=== PATIENT | male | born 1980 | race Caucasian/White ===

== ENCOUNTER 2018-04-15 18:47 | Inpatient (IN) ==
[2018-04-15] MEDS ORDERED: Famotidine PF Inj 20 MG/2 ML Vial IV.PUSH ONE (20:20)
[2018-04-15] MEDS ORDERED: Ketorolac Inj 30 MG/ML (IVP) Vial IV.PUSH ONE (20:20)
[2018-04-15] MEDS ORDERED: Lisinopril 20 MG Tablet PO ONE (20:20)
--- NOTE | 2018-04-15 20:20 | ED ---
HPI General Chief Complaint: Chest Pain Stated Complaint: chest pain/arm pain Time Seen by Provider: 04/15/18 19:55 History of Present Illness HPI narrative: Patient is a 37-year-old man on a vacation he has been driving from [place] to [place] to [place] back and forth and he developed 3 days ago epigastric pain that felt like "as if you drank a soda really fast and all the bubbles were hurting your chest. He reports burping helps alleviate the symptoms he also took Zantac which is not sure if it helped patient also reports left and right arm pain but more left than right. He put icy hot on his neck to help alleviate and that did help somewhat because he was reading on the Internet that the nerves could be pinched the neck causing left arm pain I corroborate that he was correct and that most of the likely it is pinched nerves in his neck. Patient has no family history of cardiac disease patient has hypertension he is out of his lisinopril for over a month. Problem was that they did not see him in the office he did not renew his lisinopril 20 mg daily p.o. patient is hypertensive 200/103 in the ER is pain-free at the time of my exam. His risk factors are hypertension and morbid obesity he took Tylenol with mild alleviation took Zantac took Aleve but still his symptoms persist Complete Quality Measures for STEMI Alert Patients Related Data Previous Rx's Medication Instructions Recorded amlodipine [Norvasc] 5 mg PO DAILY 30 Days #30 tab 04/17/18 aspirin 81 mg PO DAILY #30 tab 04/17/18 atorvastatin [Lipitor] 80 mg PO HS 30 Days #240 tab 04/17/18 clopidogrel [Plavix] 75 mg PO DAILY 30 Days #30 tab 04/17/18 hydralazine 50 mg PO TID 30 Days #90 tab 04/17/18 hydrochlorothiazide 12.5 mg PO DAILY 30 Days #30 cap 04/17/18 lisinopril 20 mg PO DAILY 30 Days #30 tab 04/17/18 metoprolol tartrate 25 mg PO BID 30 Days #60 tab 04/17/18 Allergies Allergy/AdvReac Type Severity Reaction Status Date / Time bee venom protein (honey bee) Allergy Swelling Verified 04/15/18 20:00 [Bee sting] No Known Drug Allergies Allergy n/a Verified 04/15/18 20:00 Review of Systems ROS: all other systems reviewed are negative [facility] Medical History Medical History Hypertension (Acute) Family History Family History Father Colon cancer Social History Social History Substance History: No History of Abuse Second Hand Smoke Exposure: Yes Smoking Status: Current every day smoker Tobacco Type: Cigarettes How Often Do You Have a Drink Containing Alcohol: 2 to 4 times a month Recent Travel in [facility] within the Last 8 Weeks: No Recent Out of Country Travel within the Last 8 Weeks: No Substance Abuse Detail Marijuana: Substance Use Status: Active Route Used Substance Abuse: Inhalation Substance Frequency: "once in a great while" Reason for Use: Calm Down, Feels Good and Get High Immunization History Tetanus Immunization: Unsure Hx Influenza Vaccine This Season: No Exam Narrative Exam Narrative: GENERAL: pt is in no distress at this time of initial exam SKIN: Warm and dry. HEAD: Atraumatic. Normocephalic. EYES: Pupils equal and round. No scleral icterus. No injection or drainage. ENT: No nasal bleeding or discharge. Mucous membranes pink and moist. NECK: Trachea midline. No JVD. massaging left neck trapezius does not reproduce the left arm pain CARDIOVASCULAR: Regular rate and rhythm. RESPIRATORY: No accessory muscle use. Clear to auscultation. Breath sounds equal bilaterally. GASTROINTESTINAL: Abdomen Obese , non tender . Hepatic and splenic margins not palpable. MUSCULOSKELETAL: Extremities without clubbing, cyanosis, or edema. No obvious deformities. NEUROLOGICAL: Awake and alert. No obvious cranial nerve deficits. Motor grossly within normal limits. Five out of 5 muscle strength in the arms and legs. Normal speech. PSYCHIATRIC: Appropriate mood and affect; insight and judgment normal. Course Hospital Course: I tell the patient that he has had an ischemic cardiac event and his troponin is 3.9 he is considering leaving I tell him the danger of repolarization arrhythmia including V. fib arrest leading to cardiac he then decides he will stay. 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 [place] I tell him that there is a high's possible risk in the first 24 hours of repolarization cardiac arrhythmia that could lead to he stays heparinized and give him aspirin and he is admitted to stepdown ICU Initial Documented Vital Signs Temperature 98.5 F 04/15/18 18:55 Pulse Rate 91 H 04/15/18 18:55 Respiratory Rate 20 04/15/18 18:55 Blood Pressure 206/124 H 04/15/18 18:55 Pulse Oximetry 97 04/15/18 18:55 Last Documented Vital Signs Temperature 97.9 F 04/17/18 11:00 Pulse Rate 71 04/17/18 11:00 Respiratory Rate 20 04/17/18 11:00 Blood Pressure 146/83 H 04/17/18 11:00 Pulse Oximetry 96 04/17/18 11:00 Critical Care Time Critical Care Time: Yes Total Critical Care Time: 30 Attestation: Patient cardiac care evaluation of EKGs troponin and evaluation heparinizing... 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 I reassure him he is a risk for going to severe repolarization cardiac arrhythmia which could be fatal leading to V. fib arrest patient then decided he will stay and he is admitted to [facility] heparin drip process patient is pain-free at this time and stable admitted to Dr. Morris Medical Screen Exam Complete: Yes Emergency Medical Condition: Yes Differential Diagnosis Differential Diagnosis: Cardiac ischemia causing chest pain versus GERD versus gastritis versus viral gastroenteritis versus costochondritis versus neuropraxia due to muscle spasms of the trapezius muscles around his paracervical area Lab Data Result diagrams: 04/17/18 10:36 04/17/18 10:36 Lab Results 04/15/18 04/15/18 04/15/18 Range/Units 20:35 20:35 20:35 WBC 11.8 H (4.0-11.0) th/mm3 RBC 5.83 (4.50-5.90) mil/mm3 Hgb 16.2 (13.0-17.0) gm/dL Hct 47.3 (39.0-51.0) % MCV 81.1 (80.0-100.0) fL MCH 27.7 (27.0-34.0) pg MCHC 34.2 (32.0-36.0) % RDW 15.1 (11.6-17.2) % Plt Count 296 (150-450) th/mm3 MPV 9.1 (7.0-11.0) fL Neut % (Auto) 68.6 (16.0-70.0) % Lymph % (Auto) 22.5 (9.0-44.0) % [place] % (Auto) 7.4 (0.0-8.0) % Eos % (Auto) 1.3 (0.0-4.0) % Baso % (Auto) 0.2 (0.0-2.0) % Neut # (Auto) 8.1 H (1.8-7.7) th/mm3 Lymph # (Auto) 2.7 (1.0-4.8) th/mm3 [place] # (Auto) 0.9 (0.0-0.9) th/mm3 Eos # (Auto) 0.2 (0.0-0.4) th/mm3 Baso # (Auto) 0.0 (0.0-0.2) th/mm3 WBC Differential . Differential Comment Auto diff final PT 10.0 (9.8-11.6) sec INR 1.0 Ratio APTT 21.8 L (24.3-30.1) sec Sodium (136-145) meq/L Potassium (3.5-5.1) meq/L Chloride (98-107) meq/L Carbon Dioxide (21.0-32.0) meq/L Anion Gap (5-15) meq/L BUN (7-18) mg/dL Creatinine (0.60-1.30) mg/dL Estimated GFR (>89) mL/min Random Glucose (74-106) mg/dL Calcium (8.5-10.1) mg/dL Total Bilirubin (0.2-1.0) mg/dL AST (15-37) U/L ALT (12-78) U/L Alkaline Phosphatase (45-117) U/L Total Creatine Kinase (39-308) U/L CK-MB (CK-2) (0.5-3.6) ng/mL CK-MB (CK-2) % (0.0-4.0) % Troponin I 3.94 H* (0.02-0.05) ng/mL Total Protein (6.4-8.2) g/dL Albumin (3.4-5.0) g/dL Urine Opiates Screen (Neg) Ur Barbiturates Screen (Neg) Ur Amphetamines Screen (Neg) U Benzodiazepines Scrn (Neg) Urine Cocaine Screen (Neg) U Cannabinoids Screen (Neg) 04/15/18 04/16/18 04/16/18 Range/Units 20:35 02:35 04:40 WBC (4.0-11.0) th/mm3 RBC (4.50-5.90) mil/mm3 Hgb (13.0-17.0) gm/dL Hct (39.0-51.0) % MCV (80.0-100.0) fL MCH (27.0-34.0) pg MCHC (32.0-36.0) % RDW (11.6-17.2) % Plt Count (150-450) th/mm3 MPV (7.0-11.0) fL Neut % (Auto) (16.0-70.0) % Lymph % (Auto) (9.0-44.0) % [place] % (Auto) (0.0-8.0) % Eos % (Auto) (0.0-4.0) % Baso % (Auto) (0.0-2.0) % Neut # (Auto) (1.8-7.7) th/mm3 Lymph # (Auto) (1.0-4.8) th/mm3 [place] # (Auto) (0.0-0.9) th/mm3 Eos # (Auto) (0.0-0.4) th/mm3 Baso # (Auto) (0.0-0.2) th/mm3 WBC Differential Differential Comment PT (9.8-11.6) sec INR Ratio APTT 27.5 D (24.3-30.1) sec Sodium 136 140 (136-145) meq/L Potassium 4.8 3.9 D (3.5-5.1) meq/L Chloride 105 106 (98-107) meq/L Carbon Dioxide 25.0 27.7 (21.0-32.0) meq/L Anion Gap 6 6 (5-15) meq/L BUN 11 11 (7-18) mg/dL Creatinine 0.84 0.89 (0.60-1.30) mg/dL Estimated GFR Greater than 89 Greater than 89 (>89) mL/min Random Glucose 95 110 H (74-106) mg/dL Calcium 8.7 8.4 L (8.5-10.1) mg/dL Total Bilirubin 0.3 0.3 (0.2-1.0) mg/dL AST 93 H 62 H (15-37) U/L ALT 49 41 (12-78) U/L Alkaline Phosphatase 74 62 (45-117) U/L Total Creatine Kinase 551 H (39-308) U/L CK-MB (CK-2) 43.3 H (0.5-3.6) ng/mL CK-MB (CK-2) % 7.9 H* (0.0-4.0) % Troponin I 6.79 H* (0.02-0.05) ng/mL Total Protein 7.9 6.9 D (6.4-8.2) g/dL Albumin 3.3 L 3.2 L (3.4-5.0) g/dL Urine Opiates Screen (Neg) Ur Barbiturates Screen (Neg) Ur Amphetamines Screen (Neg) U Benzodiazepines Scrn (Neg) Urine Cocaine Screen (Neg) U Cannabinoids Screen (Neg) 04/16/18 04/16/18 04/16/18 Range/Units 04:40 08:05 08:27 WBC 10.3 (4.0-11.0) th/mm3 RBC 5.56 (4.50-5.90) mil/mm3 Hgb 15.1 (13.0-17.0) gm/dL Hct 46.1 (39.0-51.0) % MCV 82.9 (80.0-100.0) fL MCH 27.2 (27.0-34.0) pg MCHC 32.8 (32.0-36.0) % RDW 15.1 (11.6-17.2) % Plt Count 295 (150-450) th/mm3 MPV 8.4 (7.0-11.0) fL Neut % (Auto) 65.4 (16.0-70.0) % Lymph % (Auto) 24.5 (9.0-44.0) % [place] % (Auto) 7.7 (0.0-8.0) % Eos % (Auto) 1.7 (0.0-4.0) % Baso % (Auto) 0.7 (0.0-2.0) % Neut # (Auto) 6.8 (1.8-7.7) th/mm3 Lymph # (Auto) 2.5 (1.0-4.8) th/mm3 [place] # (Auto) 0.8 (0.0-0.9) th/mm3 Eos # (Auto) 0.2 (0.0-0.4) th/mm3 Baso # (Auto) 0.1 (0.0-0.2) th/mm3 WBC Differential . Differential Comment Auto diff final PT (9.8-11.6) sec INR Ratio APTT (24.3-30.1) sec Sodium (136-145) meq/L Potassium (3.5-5.1) meq/L Chloride (98-107) meq/L Carbon Dioxide (21.0-32.0) meq/L Anion Gap (5-15) meq/L BUN (7-18) mg/dL Creatinine (0.60-1.30) mg/dL Estimated GFR (>89) mL/min Random Glucose (74-106) mg/dL Calcium (8.5-10.1) mg/dL Total Bilirubin (0.2-1.0) mg/dL AST (15-37) U/L ALT (12-78) U/L Alkaline Phosphatase (45-117) U/L Total Creatine Kinase 515 H (39-308) U/L CK-MB (CK-2) 37.6 H (0.5-3.6) ng/mL CK-MB (CK-2) % 7.3 H* (0.0-4.0) % Troponin I 7.19 H* (0.02-0.05) ng/mL Total Protein (6.4-8.2) g/dL Albumin (3.4-5.0) g/dL Urine Opiates Screen Pos H (Neg) Ur Barbiturates Screen Neg (Neg) Ur Amphetamines Screen Pos H (Neg) U Benzodiazepines Scrn Pos H (Neg) Urine Cocaine Screen Neg (Neg) U Cannabinoids Screen Neg (Neg) 04/17/18 04/17/18 Range/Units 10:36 10:36 WBC 9.4 (4.0-11.0) th/mm3 RBC 5.39 (4.50-5.90) mil/mm3 Hgb 14.6 (13.0-17.0) gm/dL Hct 44.4 (39.0-51.0) % MCV 82.5 (80.0-100.0) fL MCH 27.1 (27.0-34.0) pg MCHC 32.9 (32.0-36.0) % RDW 15.0 (11.6-17.2) % Plt Count 277 (150-450) th/mm3 MPV 8.1 (7.0-11.0) fL Neut % (Auto) 68.2 (16.0-70.0) % Lymph % (Auto) 20.6 (9.0-44.0) % [place] % (Auto) 9.4 H (0.0-8.0) % Eos % (Auto) 1.1 (0.0-4.0) % Baso % (Auto) 0.7 (0.0-2.0) % Neut # (Auto) 6.4 (1.8-7.7) th/mm3 Lymph # (Auto) 1.9 (1.0-4.8) th/mm3 [place] # (Auto) 0.9 (0.0-0.9) th/mm3 Eos # (Auto) 0.1 (0.0-0.4) th/mm3 Baso # (Auto) 0.1 (0.0-0.2) th/mm3 WBC Differential . Differential Comment Auto diff final PT (9.8-11.6) sec INR Ratio APTT (24.3-30.1) sec Sodium 139 (136-145) meq/L Potassium 4.1 (3.5-5.1) meq/L Chloride 105 (98-107) meq/L Carbon Dioxide 27.2 (21.0-32.0) meq/L Anion Gap 7 (5-15) meq/L BUN 11 (7-18) mg/dL Creatinine 0.84 (0.60-1.30) mg/dL Estimated GFR Greater than 89 (>89) mL/min Random Glucose 106 (74-106) mg/dL Calcium 8.6 (8.5-10.1) mg/dL Total Bilirubin (0.2-1.0) mg/dL AST (15-37) U/L ALT (12-78) U/L Alkaline Phosphatase (45-117) U/L Total Creatine Kinase (39-308) U/L CK-MB (CK-2) (0.5-3.6) ng/mL CK-MB (CK-2) % (0.0-4.0) % Troponin I (0.02-0.05) ng/mL Total Protein (6.4-8.2) g/dL Albumin (3.4-5.0) g/dL Urine Opiates Screen (Neg) Ur Barbiturates Screen (Neg) Ur Amphetamines Screen (Neg) U Benzodiazepines Scrn (Neg) Urine Cocaine Screen (Neg) U Cannabinoids Screen (Neg) Discharge Plan Discharge Disposition Patient Disposition: 30 Still Patient Discharge Condition Condition: Good Discharge Order Discharge Orders: Discharge Order (Routine); Ordered 04/17/18 Ordered By: Presley Connor Discharge Details Anticipated Discharge Date: 04/17/18 Discharge Comment: Discharge when cleared by cardiology. Physicians Team ED Provider: Benny Garner Primary Care Provider: UNKNOWN, Attending Provider: Presley Connor Other Providers: Rupesh Aldrich Vincent G Status ED Status: Left Department Discharge Information Discharge Date/Time: 04/16/18 12:50
--- NOTE | 2018-04-15 20:52 | ECG ---
Date Performed: 04/15/2018 Time Performed: 19:59:40 PTAGE: 37 years EKG: Sinus rhythm INCOMPLETE RIGHT BUNDLE BRANCH BLOCK BORDERLINE ECG NO PREVIOUS TRACING DOCTOR: Rupesh Aldrich Interpretating Date/Time 04/15/2018 20:52:28
[2018-04-15 21:22] LABS: Activated Partial Thrombo Time 21.8 sec (24.3-30.1)
[2018-04-15 21:36] LABS: Baso % (Auto) 0.2 % (0.0-2.0); Eos # (Auto) 0.2 th/mm3 (0.0-0.4); Eos % (Auto) 1.3 % (0.0-4.0); Hematocrit 47.3 % (39.0-51.0); Hemoglobin 16.2 gm/dL (13.0-17.0); Lymph # (Auto) 2.7 th/mm3 (1.0-4.8); Lymph % (Auto) 22.5 % (9.0-44.0); Mean Corpuscular HGB Conc 34.2 % (32.0-36.0); Mean Corpuscular Hemoglobin 27.7 pg (27.0-34.0); Mean Corpuscular Volume 81.1 fL (80.0-100.0); Mean Platelet Volume 9.1 fL (7.0-11.0); Mono # (Auto) 0.9 th/mm3 (0.0-0.9); Mono % (Auto) 7.4 % (0.0-8.0); Neut # (Auto) 8.1 th/mm3 (1.8-7.7); Neut % (Auto) 68.6 % (16.0-70.0); Platelet Count 296 th/mm3 (150-450); Red Blood Count 5.83 mil/mm3 (4.50-5.90); Red Cell Distribution Width 15.1 % (11.6-17.2); White Blood Count 11.8 th/mm3 (4.0-11.0)
[2018-04-15] MEDS ORDERED: diazePAM 5 MG Tablet PO ONE (21:48)
[2018-04-15 21:52] LABS: Alanine Aminotransferase 49 U/L (12-78)
[2018-04-15 21:54] LABS: Alkaline Phosphatase 74 U/L (45-117); Total Protein 7.9 g/dL (6.4-8.2)
[2018-04-15 22:21] LABS: Albumin 3.3 g/dL (3.4-5.0); Anion Gap 6 meq/L (5-15); Aspartate Aminotransferase 93 U/L (15-37); Blood Urea Nitrogen 11 mg/dL (7-18); Calcium 8.7 mg/dL (8.5-10.1); Chloride 105 meq/L (98-107); Glomerular Filtration Rate Greater Than 89 mL/min (>89); Glucose,Random 95 mg/dL (74-106); Sodium 136 meq/L (136-145)
[2018-04-15 22:22] LABS: Potassium 4.8 meq/L (3.5-5.1)
[2018-04-15] MEDS ORDERED: Heparin 10,000 UNITS/10 ML Vial (for IV use) IV.PUSH ONE (22:30)
[2018-04-15] MEDS ORDERED: Heparin Drip 25,000 UNIT/250 ML BAG IV.CONT PRN (22:31)
[2018-04-15] MEDS ORDERED: Morphine Inj 4 MG/ML Vial IV.PUSH ONE (22:33)
[2018-04-15] MEDS ORDERED: Morphine Inj 4 MG/ML Vial IV.PUSH PRN (22:53)
--- NOTE | 2018-04-15 23:07 | P.HPIM ---
History of Present Illness Primary Care Physician: UNKNOWN History of Present Illness: Mr. Jacobs is a 37-year-old male. He has a past history of hypertension. He came into the hospital with chest pressure. This is been occurring on and off for the past 2 days it became more significant today. Other symptoms included bilateral arm cramping. He says similar symptoms previously happened approximately 2 years ago. He visited hospital for those symptoms but that workup was negative at that time. Workup tonight showing a high troponin level at 3.94. Patient continues to have chest pressure on and off. Risk factors for coronary artery disease or smoking, alcohol abuse, obesity, and a sedentary lifestyle. He says he has used cocaine in the past but denies any recent cocaine use. He did recently use Adderall. Hypertension is present at baseline and he takes lisinopril 20 mg daily for this. No other complaints. - Diagnosis (1) Angina at rest (2) NSTEMI (non-ST elevated myocardial infarction) (3) Hypertension Review of Systems Constitutional: Denies chills, Denies fever(s), Denies malaise, Denies night sweats, Denies weakness Eyes: Denies blind spots, Denies blurry vision, Denies change in vision, Denies double vision Ears, Nose, Mouth, and Throat: Denies abnormal hearing, Denies bleeding gums, Denies change in voice Cardiovascular: Reports chest pain, Reports chest pain at rest, Reports chest pain with activity Respiratory: Denies cough, Denies shortness of breath, Denies wheezing Gastrointestinal: Denies abdominal pain, Denies black, tarry stools, Denies bloating, Denies bright, red blood in stools Musculoskeletal: Denies abnormal walking, Denies back pain, Denies body aches Skin/Breast: Denies rash, Denies skin pain, Denies skin ulcer Neurologic: Denies abnormal hearing, Denies abnormal movements, Denies abnormal speech PMFSH - History History Provided By: Patient - Medical History Medical History: Medical History (Last Updated 04/15/18 @ 20:01 by Eli Bennett) Hypertension - Family History Family History: Family History (Last Updated 04/16/18 @ 00:14 by Derek Morris MD) Father Colon cancer - Tobacco History Second Hand Smoke Exposure: No Tobacco Use In Past 30 Days: Yes Smoking Status: Current every day smoker Tobacco Type: Cigarettes - Alcohol History How Often Do You Have a Drink Containing Alcohol: 2 to 3 times a week - Substance Use History Substance History: Active Abuse - Substance Use Type Marijuana Status: Active Route Used: Inhalation Frequency: "once in a great while" Reason for Use: Calm Down, Feels Good, Get High - Travel History Recent Travel in the [place] Within the Last 8 Weeks: No Recent Travel Out of the Country Within the Last 8 Weeks: No - Immunization History Tetanus Immunization: Unsure Hx Influenza Vaccine This Season: No Medications and Allergies Active Medications: Active Medications Al Hydroxide/Mg Hydroxide (Milk Of [place] Amin) 30 ml PO Q12H PRN PRN Reason: Mild Constipation Clonidine HCl (Catapres) 0.1 mg PO Q6H PRN PRN Reason: SYS BP GREATER THAN 160 MMHG Enalaprilat (Vasotec Inj) 1.25 mg IV.PUSH Q6H PRN PRN Reason: SBP>160, DBP>90 Heparin Sodium/Dextrose (Heparin/D5w 25,000 U/250 Ml) 25,000 unit in 250 mls @ 0 mls/hr IV.CONT TITRATE PRN; Protocol PRN Reason: Per Protocol Sodium Chloride (Ns Inj) 1,000 mls @ 84 mls/hr IV.CONT .[id number] [place] Lisinopril (Prinivil) 20 mg PO DAILY [place] Morphine Sulfate (Morphine Inj) 4 mg IV.PUSH Q4H PRN PRN Reason: Pain 7 to 10 Morphine Sulfate (Morphine Inj) 2 mg IV.PUSH Q4H PRN PRN Reason: Pain 3 to 6 Ondansetron HCl (Zofran Inj) 4 mg IV.PUSH Q6H PRN PRN Reason: NAUSEA OR VOMITING Sodium Chloride (Ns Flush) 2 ml IV.FLUSH UNSCH PRN PRN Reason: FLUSH AFTER USING IV ACCESS Last Admin: 04/15/18 21:14 Dose: 2 ml Allergies Allergy/AdvReac Type Severity Reaction Status Date / Time bee venom protein (honey bee) Allergy Swelling Verified 04/15/18 20:00 [Bee sting] No Known Drug Allergies Allergy n/a Verified 04/15/18 20:00 Home Medications Medication Instructions Recorded Confirmed Type lisinopril 20 mg PO DAILY 04/15/18 04/15/18 History Exam Vital signs: Vital Signs 04/15/18 18:55 04/15/18 20:01 04/15/18 20:06 Temperature 98.5 F Pulse Rate 91 H 82 77 Respiratory Rate 20 18 Blood Pressure 206/124 H 201/114 H Pulse Oximetry 97 98 04/15/18 20:20 04/15/18 20:30 04/15/18 20:44 Temperature Pulse Rate 82 75 Respiratory Rate 20 Blood Pressure 200/103 H Pulse Oximetry 98 98 98 Intake & Output 04/15/18 04/15/18 04/16/18 06:59 18:59 06:59 Weight 167.829 kg Results - Labs CBC & Chem 7: 04/15/18 20:35 04/15/18 20:35 Labs: Short CBC 04/15/18 Range/Units 20:35 WBC 11.8 H (4.0-11.0) th/mm3 Hgb 16.2 (13.0-17.0) gm/dL Hct 47.3 (39.0-51.0) % Plt Count 296 (150-450) th/mm3 BMP 04/15/18 20:35 Sodium 136 Potassium 4.8 Chloride 105 Carbon Dioxide 25.0 BUN 11 Creatinine 0.84 Calcium 8.7 Cardiac Enzymes 04/15/18 Range/Units 20:35 Troponin I 3.94 H* (0.02-0.05) ng/mL Liver Function 04/15/18 Range/Units 20:35 Total Bilirubin 0.3 (0.2-1.0) mg/dL AST 93 H (15-37) U/L ALT 49 (12-78) U/L Alkaline Phosphatase 74 (45-117) U/L Albumin 3.3 L (3.4-5.0) g/dL Caprini VTE Risk Assessment Caprini VTE Risk Assessment: Moderate/High Risk (score >= 2) Caprini Risk Assessment Model: Point Value = 1 Point Value = 2 Point Value = 3 Point Value = 5 Age 41-60 Minor surgery BMI > 25 kg/m2 Swollen legs Varicose veins or History of unexplained or recurrent spontaneous Oral contraceptives or hormone replacement Sepsis (< 1 month) Serious lung disease, including pneumonia (< 1 month) Abnormal pulmonary function Acute myocardial infarction Congestive heart failure (< 1 month) History of inflammatory bowel disease Medical patient at bed rest Age 61-74 Arthroscopic surgery Major open surgery (> 45 min) Laparoscopic surgery (> 45 min) Malignancy Confined to bed (> 72 hours) Immobilizing plaster cast Central venous access Age >= 75 History of VTE Family history of VTE Factor V Leiden Prothrombin [id number] Lupus anticoagulant Anticardiolipin antibodies Elevated serum homocysteine Heparin-induced thrombocytopenia Other congenital or acquired thrombophilia Stroke (< 1 month) Elective arthroplasty Hip, pelvis, or leg fracture Acute spinal cord injury (< 1 month) Prophylaxis Regimen: Total Risk Factor Score Risk Level Prophylaxis Regimen 0-1 Low Early ambulation 2 Moderate Order ONE of the following: *Sequential Compression Device (SCD) *Heparin 5000 units SQ BID 3-4 Higher Order ONE of the following medications: *Heparin 5000 units SQ TID *Enoxaparin/Lovenox 40 mg SQ daily (WT < 150 kg, CrCl > 30 mL/min) *Enoxaparin/Lovenox 30 mg SQ daily (WT < 150 kg, CrCl > 10-29 mL/min) *Enoxaparin/Lovenox 30 mg SQ BID (WT < 150 kg, CrCl > 30 mL/min) AND/OR *Sequential Compression Device (SCD) 5 or more Highest Order ONE of the following medications: *Heparin 5000 units SQ TID (Preferred with Epidurals) *Enoxaparin/Lovenox 40 mg SQ daily (WT < 150 kg, CrCl > 30 mL/min) *Enoxaparin/Lovenox 30 mg SQ daily (WT < 150 kg, CrCl > 10-29 mL/min) *Enoxaparin/Lovenox 30 mg SQ BID (WT < 150 kg, CrCl > 30 mL/min) AND *Sequential Compression Device (SCD) Assessment and Plan - Assessment (1) Angina at rest Code(s): I20.8 - Other forms of angina pectoris Status: Acute (2) NSTEMI (non-ST elevated myocardial infarction) Code(s): I21.4 - Non-ST elevation (NSTEMI) myocardial infarction Status: Acute (3) Hypertension Code(s): I10 - Essential (primary) hypertension Status: Acute - Plan 37-year-old male admitted secondary to angina with NSTEMI. Angina NSTEMI Follow cardiac enzymes Aspirin daily When necessary oxygen When necessary morphine for pain. When necessary nitroglycerin Follow on telemetry Cardiology consulted Heparin IV drip Hypertensive urgency Hypertension Continue baseline treatment Follow blood pressures Adjust treatments as needed As needed clonidine Nicotine dependence Patient counseled to quit Intermittent alcohol abuse Monitor for any evidence of withdrawal DVT prophylaxis Patient is on a heparin drip
[2018-04-16] MEDS: Sod Chloride 0.9% Inj 1,000 ML IV.CONT SCH ×2 (01:00→18:25)
[2018-04-16] MEDS: Morphine Inj 4 MG/ML Vial IV.PUSH PRN ×3 (01:01→10:04)
[2018-04-16 03:26] LABS: Alanine Aminotransferase 41 U/L (12-78); Albumin 3.2 g/dL (3.4-5.0); Alkaline Phosphatase 62 U/L (45-117); Anion Gap 6 meq/L (5-15); Aspartate Aminotransferase 62 U/L (15-37); Blood Urea Nitrogen 11 mg/dL (7-18); Calcium 8.4 mg/dL (8.5-10.1); Carbon Dioxide 27.7 meq/L (21.0-32.0); Chloride 106 meq/L (98-107); Creatine Kinase 551 U/L (39-308); Glomerular Filtration Rate Greater Than 89 mL/min (>89); Glucose,Random 110 mg/dL (74-106); Potassium 3.9 meq/L (3.5-5.1); Sodium 140 meq/L (136-145); Total Protein 6.9 g/dL (6.4-8.2)
[2018-04-16 03:30] LABS: Troponin I 6.79 ng/mL (0.02-0.05)
[2018-04-16 03:44] LABS: Creatine Kinase MB 43.3 ng/mL (0.5-3.6)
[2018-04-16 03:52] LABS: CKMB Percent 7.9 % (0.0-4.0)
[2018-04-16 05:29] LABS: Baso # (Auto) 0.1 th/mm3 (0.0-0.2); Baso % (Auto) 0.7 % (0.0-2.0); Eos # (Auto) 0.2 th/mm3 (0.0-0.4); Eos % (Auto) 1.7 % (0.0-4.0); Hematocrit 46.1 % (39.0-51.0); Hemoglobin 15.1 gm/dL (13.0-17.0); Lymph # (Auto) 2.5 th/mm3 (1.0-4.8); Lymph % (Auto) 24.5 % (9.0-44.0); Mean Corpuscular HGB Conc 32.8 % (32.0-36.0); Mean Corpuscular Hemoglobin 27.2 pg (27.0-34.0); Mean Corpuscular Volume 82.9 fL (80.0-100.0); Mean Platelet Volume 8.4 fL (7.0-11.0); Mono # (Auto) 0.8 th/mm3 (0.0-0.9); Mono % (Auto) 7.7 % (0.0-8.0); Neut # (Auto) 6.8 th/mm3 (1.8-7.7); Neut % (Auto) 65.4 % (16.0-70.0); Platelet Count 295 th/mm3 (150-450); Red Blood Count 5.56 mil/mm3 (4.50-5.90); Red Cell Distribution Width 15.1 % (11.6-17.2); White Blood Count 10.3 th/mm3 (4.0-11.0)
[2018-04-16] MEDS: Lisinopril 20 MG Tablet PO SCH (08:08)
--- NOTE | 2018-04-16 08:42 | ECG ---
Date Performed: 04/16/2018 Time Performed: 00:58:57 PTAGE: 37 years EKG: Sinus rhythm CONSIDER INFERIOR INFARCT, AGE UNDETERMINED BORDERLINE ECG NO PREVIOUS TRACING DOCTOR: Rupesh Aldrich Interpretating Date/Time 04/16/2018 08:41:13
[2018-04-16 09:24] LABS: Amphetamine Screen,Urine Pos (Neg); Barbiturate Screen,Urine Neg (Neg); Cannabinoid Screen,Urine Neg (Neg); Cocaine Screen,Urine Neg (Neg)
[2018-04-16 09:25] LABS: Creatine Kinase MB 37.6 ng/mL (0.5-3.6)
[2018-04-16 09:34] LABS: Opiate Screen,Urine Pos (Neg)
--- NOTE | 2018-04-16 11:46 | ECG ---
Date Performed: 04/16/2018 Time Performed: 07:53:34 PTAGE: 37 years EKG: Sinus rhythm NORMAL ECG PREVIOUS TRACING : 04/16/2018 00.58 No significant change from previous tracing noted. DOCTOR: Rupesh Aldrich Interpretating Date/Time 04/16/2018 11:42:46
[2018-04-16 12:01] LABS: CKMB Percent 7.3 % (0.0-4.0); Troponin I 7.19 ng/mL (0.02-0.05)
[2018-04-16] MEDS ORDERED: Heparin 10,000 UNITS/10 ML Vial (for IV use) ONE (12:03)
[2018-04-16] MEDS ORDERED: Heparin/NS PF Inj 1,000 ML ONE (12:03)
[2018-04-16] MEDS ORDERED: fentaNYL Citrate Inj 100 MCG/2 ML Ampul ONE (12:48)
[2018-04-16] MEDS ORDERED: hydrALAZINE HCl Inj 20 MG/ML Vial ONE (14:28)
[2018-04-16] MEDS ORDERED: Misc Info for Pharmacy OTHER STA (14:40)
[2018-04-16] MEDS ORDERED: Morphine Inj 4 MG/ML Vial IV.PUSH PRN (14:40)
[2018-04-16] MEDS ORDERED: Acetaminophen 325 MG Tablet PO PRN (14:40)
[2018-04-16] MEDS ORDERED: oxyCODONE/Acetaminophen 10/325 Tablet PO PRN (14:40)
--- NOTE | 2018-04-16 14:43 | CATHPROC ---
[facility] HIS Report Study Information Study Number Admission Scheduled Start Study Start [id number] Apr 15 2018 10:55PM 04/16/2018 Apr 16 2018 12:33PM [facility] Service Cardiac Catheterization Admit Source Facility Department Emergency department [facility] Worker Physician and Clinical Staff Initial Isauro Velasquez Parakeet Raiser Nimo Dennis RN Parakeet RaiserSanjuana Dominguez RN Other cathlab, cathlab Recorder Frida Sánchez,HEALTHCARE INTERPRETER TECH2 Scrub Annamaria Mccartney RCIS TECH2 Procedures Performed Procedure Location (Site) Vessel Name Coronary Angiograms LCA Left Coronary Coronary Angiograms RCA Right Coronary L Heart Cath PTCA CIRC Mid CIRC Stent CIRC Mid CIRC Wire insertion Radial (right) Radial Art. Equipment Time Canary Raiser Description Size Mfg Part Number Used/Scraped WIRE, BALANCE MIDDLEWEIGHT [id number] 13:12 [employer] 190CM Used 190CM *[id number] TRANSDUCER, TRUWAVE [id number] 12:37 ROSE BEATTY * Used W/STOCKCOCK *[id number] 534-518T *[id number] 534-521T *[id number] 12:37 [employer] BLANKET,WARM AIR CCL * Used *[id number] 12:37 [employer] PACK, CCL CUSTOM * Used *[id number] 12:37 [employer] SUPPORT, ARTERIAL ADULT 19988 *[id number] Used [id number] 13:33 MEDTRONIC BALLOON, 2.0 X 12MM EUPHORA 12MM Used *[id number] 13:42 MEDTRONIC BALLOON, 2.5 X 20MM EUPHORA 20MM Used *[id number] BALLOON, 2.75 X 15MM NC [id number] 13:52 MEDTRONIC 15MM Used EUPHORA *[id number] BALLOON, 3.0 X 15MM NC [id number] 14:07 MEDTRONIC 15MM Used EUPHORA *[id number] BALLOON, 3.25 X 8MM NC [id number] 13:53 MEDTRONIC 8MM Used EUPHORA *[id number] [id number] 13:48 MEDTR[employer]IC STENT, 2.5 26 INTEGRITY 2.5 26 Used *[id number] 13:12 MEDTRONIC/AVE EBU 3.5 Z2 GUIDE CATHETER FR 6 Used *[id number] 13:26 [employer]TR[employer]IC/AVE EBU 4.0 Z2 GUIDE CATHETER FR 6 Used *[id number] 13:38 Tocagen 30 EMETERIO INDEFLATOR Used *[id number] BAND, RADIAL COMPRESSION TR [id number] 14:09 INFERNO FITNESS [employer] 29CM Used LARGE 29 *[id number] 12:37 [employer] WIRE, EXCHANGE 260CM 3MMJ 260CM Used *[id number] 12:37 NAMIC MANIFOLD, 4 PORT * Used *[id number] 12:37 NYCOMED OMNIPAQUE, 350 MG, 150ML 150ML [id number] Used 13:56 NYCOMED OMNIPAQUE, 350 MG, 150ML 150ML [id number] Used SHEATH, FR6 TRANSRADIAL [id number] 12:37 [employer] FR 6 Used SLENDER 10CM *[id number] Equipment Model, Serial, Lot Number and Expiration Data Description Model Number Serial Number Lot Number Expiration Date STENT, 2.5 26 INTEGRITY [id number] 06-03-2019 History: Risk Factors Family History of Hypertension Dyslipidemia Previous AL Previous Heart Failure Premature CAD Yes No Yes No No Prior Valve Prior PCI Prior CABG Surgery No No No Cerebrovascular Peripheral Artery Chronic Lung On Dialysis Diabetes Disease Disease Disease No No No No No History: Symptoms/Diagnosis Selection Items Angina-unstable History: Stress Tests Stress or Imaging Studies Performed No History: Other Disease Selection Items HTN History: Other Current Smoker Method Packs a Day Years Used Pack Years Yes Cigarettes 09 23 21 Labs Hgb (g/dl) Hct (%) WBC (l/cumm) Platelets (thousands) 11.60-17.00 35.00-51.00 4.00-11.00 150.00-450.00 15.1 46.1 10.3 295 Glucose (mg/dl) BUN (mg/dl) Creatinine (mg/dl) BUN:Creatinine (1:x) 74.00-106.00 7.00-18.00 0.50-1.30 10.00-20.00 110 11 0.8 13.8 Na (meq/l) K (meq/l) 136.00-145.00 3.50-5.10 140 3.9 Troponin I (ng/ml) CPK-MB (ng/ML) 0.02-0.05 0.50-3.60 6.7 37.6 Medication Medication Total Dose (Bolus/Oral) Medication Total Dosage/Unit 1% XYLOCAINE 20 mL ASPIRIN 81 mg FENTANYL 75 mcg HEPARIN 63454 units HYDRALAZINE 10 mg NTG (IC) 200 mcg OXYGEN 2 l/min PLAVIX 600 mg RADIAL COCKTAIL 5 mL (Bolus) VERSED 1.5 mg Medications (Bolus/Oral) Medication Time Given Dosage/Unit Administered By Reason OXYGEN 04/16/2018 12:54:44 PM 2 l/min Nimo Dennis 2 l/min OXYGEN given in lab by Nimo Dennis RN via Nasal. Ordered by Isauro Robertson VERSED 04/16/2018 1:00:11 PM 0.5 mg Jeannie, Nimo 0.5 mg VERSED given in lab by Nimo Dennis RN in Left Hand via Peripheral IV. Ordered by Isauro Robertson 1% XYLOCAINE 04/16/2018 1:00:28 PM 20 mL Isauro Robertson 20 mL 1% XYLOCAINE given in lab by Isauro Robertson in Right Radial via Subcutaneous. Ordered by Isauro Gonzales FENTANYL 04/16/2018 1:01:15 PM 25 mcg Jeannie, Nimo 25 mcg FENTANYL given in lab by Nimo Dennis RN in Left Hand via Peripheral IV. Ordered by Isauro Vasquez Ntg 200mcg Verapamil 2.5mg Heparin RADIAL COCKTAIL 04/16/2018 1:03:26 PM 5 mL (Bolus) Nimo Dennis 2000U 5 mL (Bolus) RADIAL COCKTAIL given in lab by Nimo Dennis RN via Radial. Using [Solution Name]. Or dered by Isauro Robertson Reason: Ntg 200mcg Verapamil 2.5mg Heparin 5000U. HEPARIN 04/16/2018 1:15:12 PM 8000 units Nimo Dennis 8000 units HEPARIN given in lab by Nimo Dennis RN in Left Hand via Peripheral IV. Ordered by Isauro Haque VERSED 04/16/2018 1:26:46 PM 0.5 mg Hes, Nimo 0.5 mg VERSED given in lab by Nimo Dennis RN in Left Hand via Peripheral IV. Ordered by Isauro Robertson FENTANYL 04/16/2018 1:27:00 PM 25 mcg Hesher, Nimo 25 mcg FENTANYL given in lab by Nimo Dennis RN in Left Hand via Peripheral IV. Ordered by Isauro Vasquez HEPARIN 04/16/2018 1:45:17 PM 3000 units Nimo Dennis 3000 units HEPARIN given in lab by Nimo Dennis RN in Left Hand via Peripheral IV. Ordered by Isauro Haque NTG (IC) 04/16/2018 1:50:22 PM 200 mcg Isauro Robertson 200 mcg NTG (IC) given in lab by Isauro Robertson in Right Radial via Intra-coronary. Ordered by Isauro Gonzales HEPARIN 04/16/2018 1:59:15 PM 2000 units Nimo Dennis 2000 units HEPARIN given in lab by Nimo Dennis RN in Left Hand via Peripheral IV. Ordered by Isauro Haque VERSED 04/16/2018 2:10:20 PM 0.5 mg Nimo Dennis 0.5 mg VERSED given in lab by Nimo Dennis RN in Left Hand via Peripheral IV. Ordered by Isauro Robertson FENTANYL 04/16/2018 2:11:29 PM 25 mcg Nimo Dennis 25 mcg FENTANYL given in lab by Nimo Dennis RN in Left Hand via Peripheral IV. Ordered by Isauro Vasquez PLAVIX 04/16/2018 2:23:05 PM 600 mg Nimo Dennis 600 mg PLAVIX given in lab by Nimo Dennis RN via Oral. Ordered by Isauro Robertson ASPIRIN 04/16/2018 2:23:52 PM 81 mg Nimo Dennis 81 mg ASPIRIN given in lab by Nimo Dennis RN via Subcutaneous. Ordered by Isauro Robertson HYDRALAZINE 04/16/2018 2:28:51 PM 10 mg Nimo Dennis 10 mg HYDRALAZINE given in lab by Nimo Dennis RN via Peripheral IV. Ordered by Isauro Robertson Medication (Drip) Medication Time Given Dosage/Unit Concentration/Unit Diluent (ml) Solution IV Solutions 04/16/2018 12:36:10 PM 0 mL (IV) 500 NaCl .9 IV Solutions given in lab by Nimo Dennis RN in Left Hand via Peripheral IV. Pump/Drip Flow = 20 m l/hr using NaCl .9. Ordered by Isauro Robertson Initial Case Assessment Cardiovascular HR NIBP 84 142/106 Edema Present Skin color Skin None Normal Warm Dry Circulatory - Right Pulses Dorsalis Pedis Femoral Radial 2 3 3 Scale (0,1,2,3,4,d) Circulatory - Left Pulses Dorsalis Pedis Femoral Radial 2 3 Scale (0,1,2,3,4,d) Neurological State Oriented to time-place- Alert Moves all extremities person Respiration - General Respiration Rate SpO2 (%) (B/min) 14 96 Initial Case Assessment Cardiovascular HR NIBP 97 131/85 Edema Present Skin color Skin None Normal Warm Dry Circulatory - Right Pulses Dorsalis Pedis Femoral Radial 2 3 3 Scale (0,1,2,3,4,d) Circulatory - Left Pulses Dorsalis Pedis Femoral Radial 2 3 Scale (0,1,2,3,4,d) Neurological State Oriented to time-place- Alert Moves all extremities person Respiration - General Respiration Rate SpO2 (%) (B/min) 14 97 Chronological Log Time Study Chronological Log 12:34:09 Patient arrived via Bed. 12:34:09 Patient Name, D.O.B, / Armband Verified By R.N. 12:35:55 Pre-op and post- op instructions given; patient acknowledges understanding of instructions. 12:35:58 Allens test performed on the right radial and ulnar artery. 12:36:00 Patient has been NPO for More than 6Hrs. 12:36:03 NO Skin Breakdown- 12:36:07 Evelyne Prominences Protected 12:36:08 A # 20 IV was noted in the Hand (left). Grade = 0 12:36:09 A # 20 IV was noted in the Forearm (right). Grade = 0 IV Solutions given in lab by Nimo Dennis RN in Left Hand via Peripheral IV. Pump/Drip Flow = 20 ml/hr using NaCl 12:36:10 .9. Ordered by Isauro Robertson 12:36:12 History and physical on the chart or being dictated. 12:40:13 Reference ECG taken Vitals capture started with the following parameters, Patient=Adult, Interval=5 min, Initial Pr lkvzsn=793 mmHg, 12:43:06 Deflation Rate=5 mmHg, Cuff placed on Left Arm 12:43:36 HR=84 bpm, HKOM=266/106 mmhg, SpO2=96.0 %, Resp=14 B/min, Pain=0, Nyasia=10, Guzman=2 Assessment: Initial Case, HR=84 BPM, EDZA=576/106 mmhg, Edema=None, Color=Normal, Skin = Warm, Dry Right Pulses: Mahendra Ped=2, Femoral=3, Radial=3 12:43:53 Left Pulses: Mahendra Ped=2, Femoral=3 Neurological: State=Alert, Ox3, JOYA Respiration: Resp=14 B/min, SpO2=96 % 12:44:40 HEPARIN DRIP DISCONTUED AT 1228 12:46:08 Right Radial and groin(s) prepped with 2% chlorhexidine, and draped after a 3 min. waiting time. 12:49:22 Contrast Scanned 12:49:25 HR=82 bpm, QHFI=694/110 mmhg, SpO2=94.0 %, Resp=13 B/min, Pain=0, Nyasia=10, Guzman=2 12:53:45 HR=87 bpm, YDXY=887/102 mmhg, SpO2=91.0 %, Resp=14 B/min, Pain=0, Nyasia=10, Guzman=2 12:54:44 2 l/min OXYGEN given in lab by Nimo Dennis, KALYN via Nasal. Ordered by Isauro Robertson . 12:57:25 Pressure channel 1 zeroed. Time Out. Correct patient, correct procedure, correct physician, labs, allergies, and equipment verified with recyclable products sorter 12:58:25 team present. Fire risk assesment completed (see hard stop sheet for coding). Time Out Conc urred by MD and individual staff in procedure. 12:58:50 HR=86 bpm, KQOX=621/110 mmhg, SpO2=94.0 %, Resp=14 B/min, Pain=0, Nyasia=10, Guzman=2 12:59:12 Case Start 13:00:11 0.5 mg VERSED given in lab by Nimo Dennis, RN in Left Hand via Peripheral IV. Ordered by Isauro Robertson 20 mL 1% XYLOCAINE given in lab by Isauro Robertson in Right Radial via Subcutaneous. Ordere d by Marcelo, 13:00:28 Isauro Ibarra 13:00:59 Access site was Right Radial Artery . 13:01:15 25 mcg FENTANYL given in lab by Nimo Dennis, RN in Left Hand via Peripheral IV. Ordered by Isauro Robertson A SHEATH, FR6 TRANSRADIAL SLENDER 10CM FR 6 was advanced into the Radial (right) using the Nancy fied Seldinger 13:02:07 technique. A JR 4.0 INFINITI CATHETER FR 5 was advanced over a wire. OMNIPAQUE, 350 MG, 150ML 150ML was us ed for 13:02:38 injections. 5 mL (Bolus) RADIAL COCKTAIL given in lab by Nimo Dennis, KALYN via Radial. Using [Solution Nam e]. Ordered by 13:03:26 Isauro Robertson Reason: Ntg 200mcg Verapamil 2.5mg Heparin 5000U. 13:03:45 HR=94 bpm, GUUD=978/97 mmhg, SpO2=98 %, Resp=14 B/min, Pain=0, Nyasia=10, Guzman=2 Recorded Pressure: LV, HR=89, Condition=Condition 1 13:05:11 (Left Ventricle) LV 170/10/23 Recorded Pressure: LV, Ao, HR=94, Condition=Condition 1 13:05:28 (Left Ventricle) LV 165/3/26, (Aorta) Ao 156/100/125 Recorded Pressure: Ao, HR=98, Condition=Condition 1 13:06:33 (Aorta) Ao 143/103/123 13:06:51 The RCA was injected and visualized at various angles. OMNIPAQUE, 350 MG, 150ML 150ML used . After removing the current catheter a JL 3.5 INFINITI CATHETER FR 5 was advanced over a WIRE, E XCHANGE 260CM 13:07:16 3MMJ 260CM. 13:08:50 HR=92 bpm, VDUX=201/106 mmhg, SpO2=92.0 %, Resp=14 B/min, Pain=0, Nyasia=10, Guzman=2 13:10:41 The LCA was injected and visualized at various angles. OMNIPAQUE, 350 MG, 150ML 150ML used . 13:13:53 HR=88 bpm, AOFS=930/100 mmhg, SpO2=96 %, Resp=15 B/min, Pain=0, Nyasia=10, Guzman=2 After removing the current catheter a EBU 3.5 Z2 GUIDE CATHETER FR 6 was advanced over a WIRE, EXCHANGE 13:15:02 260CM 3MMJ 260CM. 13:15:12 8000 units HEPARIN given in lab by Nimo Dennis, KALYN in Left Hand via Peripheral IV. Order ed by Isauro Robertson 13:18:52 HR=84 bpm, XWYB=005/102 mmhg, SpO2=93.0 %, Resp=14 B/min, Pain=0, Nyasia=10, Guzman=2 13:22:20 A WIRE, BALANCE MIDDLEWEIGHT 190CM 190CM was inserted via Radial (right). 13:23:53 HR=78 bpm, FZDM=698/104 mmhg, SpO2=93.0 %, Resp=15 B/min, Pain=0, Nyasia=10, Guzman=2 13:25:04 Wire removed After removing the current catheter a EBU 4.0 Z2 GUIDE CATHETER FR 6 was advanced over a WIRE, EXCHANGE 13:25:35 260CM 3MMJ 260CM. 13:26:46 0.5 mg VERSED given in lab by Nimo Dennis RN in Left Hand via Peripheral IV. Ordered by Isauro Robertson 13:27:00 25 mcg FENTANYL given in lab by Nimo Dennis RN in Left Hand via Peripheral IV. Ordered by Isauro Robertson 13:29:29 HR=84 bpm, OCZK=371/102 mmhg, SpO2=94.0 %, Resp=15 B/min, Pain=0, Nyasia=10, Guzman=2 13:32:27 A WIRE, BALANCE MIDDLEWEIGHT 190CM 190CM was inserted via Radial (right). 13:33:15 Interventional wire has crossed the lesion 13:33:51 HR=81 bpm, DROI=920/104 mmhg, SpO2=93.0 %, Resp=14 B/min, Pain=0, Nyasia=10, Guzman=2 A BALLOON, 2.0 X 12MM EUPHORA 12MM was inserted over WIRE, BALANCE MIDDLEWEIGHT 190CM 190CM via the 13:33:59 CIRC Mid. A BALLOON, 2.0 X 12MM EUPHORA 12MM over a WIRE, BALANCE MIDDLEWEIGHT 190CM 190CM in the CIRC Mi d was 13:37:59 inflated using a 30 EMETERIO INDEFLATOR at 10 emeterio for 15 sec. 13:38:52 HR=80 bpm, OUPJ=985/106 mmhg, SpO2=93.0 %, Resp=14 B/min, Pain=0, Nyasia=10, Guzman=2 A BALLOON, 2.0 X 12MM EUPHORA 12MM over a WIRE, BALANCE MIDDLEWEIGHT 190CM 190CM in the CIRC Mi d was 13:39:06 inflated using a 30 EMETERIO INDEFLATOR at 16 emeterio for 16 sec. A BALLOON, 2.0 X 12MM EUPHORA 12MM over a WIRE, BALANCE MIDDLEWEIGHT 190CM 190CM in the CIRC Mi d was 13:39:28 inflated using a 30 EMETERIO INDEFLATOR at 18 emeterio for 10 sec. 13:39:49 Balloon Removed. 13:40:04 ACT (Normal Range 90-180) = 253 A BALLOON, 2.5 X 20MM EUPHORA 20MM was inserted over WIRE, BALANCE MIDDLEWEIGHT 190CM 190CM via the 13:42:00 CIRC Mid. A BALLOON, 2.5 X 20MM EUPHORA 20MM over a WIRE, BALANCE MIDDLEWEIGHT 190CM 190CM in the CIRC Mi d was 13:43:55 inflated using a 30 EMETERIO INDEFLATOR at 8 emeterio for 10 sec. 13:43:57 HR=81 bpm, SMAW=632/106 mmhg, SpO2=94.0 %, Resp=14 B/min, Pain=0, Nyasia=10, Guzman=2 A BALLOON, 2.5 X 20MM EUPHORA 20MM over a WIRE, BALANCE MIDDLEWEIGHT 190CM 190CM in the CIRC Mi d was 13:44:57 inflated using a 30 EMETERIO INDEFLATOR at 14 emeterio for 14 sec. 13:45:17 3000 units HEPARIN given in lab by Nimo Dennis RN in Left Hand via Peripheral IV. Order ed by Isauro Robertson 13:46:08 Balloon Removed. An STENT, 2.5 26 INTEGRITY 2.5 26 Bare Metal Stent was inserted through a EBU 4.0 Z2 GUIDE CATH ETER FR 6 over 13:47:33 a WIRE, BALANCE MIDDLEWEIGHT 190CM 190CM. A STENT, 2.5 26 INTEGRITY 2.5 26 was deployed using a 30 EMETERIO INDEFLATOR at 14 atmospheres for 3 0 seconds in 13:48:52 the CIRC Mid. 13:48:54 HR=80 bpm, AVMV=890/104 mmhg, SpO2=96 %, Resp=14 B/min, Pain=0, Nyasia=10, Guzman=2 13:49:45 Delivery device removed 200 mcg NTG (IC) given in lab by Isauro Robertson in Right Radial via Intra-coronary. Ordere d by Isauro Robertson 13:50:22 G. A BALLOON, 2.75 X 15MM NC EUPHORA 15MM was inserted over WIRE, BALANCE MIDDLEWEIGHT 190CM 190CM via 13:52:27 the CIRC Mid. 13:53:53 HR=85 bpm, BHMI=226/102 mmhg, SpO2=95 %, Resp=14 B/min, Pain=0, Nyasia=10, Guzman=2 A BALLOON, 3.25 X 8MM NC EUPHORA 8MM over a WIRE, EXCHANGE 260CM 3MMJ 260CM in the CIRC Mid was 13:54:36 inflated using a 30 EMETERIO INDEFLATOR at 16 emeterio for 20 sec. A BALLOON, 3.25 X 8MM NC EUPHORA 8MM over a WIRE, EXCHANGE 260CM 3MMJ 260CM in the CIRC Mid was 13:55:17 inflated using a 30 EMETERIO INDEFLATOR at 18 emeterio for 8 sec. 13:56:25 Balloon Removed. 13:58:08 Wire removed 13:58:53 HR=81 bpm, RPVA=527/95 mmhg, SpO2=96 %, Resp=14 B/min, Pain=0, Nyasia=10, Guzman=2 13:59:15 2000 units HEPARIN given in lab by Nimo Dennis RN in Left Hand via Peripheral IV. Order ed by Isauro Robertson. 14:03:54 HR=84 bpm, SXTB=318/90 mmhg, SpO2=96 %, Resp=14 B/min, Pain=0, Nyasia=10, Guzman=2 14:07:30 A WIRE, BALANCE MIDDLEWEIGHT 190CM 190CM was inserted via Radial (right). A BALLOON, 3.0 X 15MM NC EUPHORA 15MM was inserted over WIRE, EXCHANGE 260CM 3MMJ 260CM via the CIRC 14:07:43 Mid. A BALLOON, 3.0 X 15MM NC EUPHORA 15MM over a WIRE, BALANCE MIDDLEWEIGHT 190CM 190CM in the CIRC Mid 14:08:53 was inflated using a 30 EMETERIO INDEFLATOR at 14 emeterio for 14 sec. 14:08:57 HR=84 bpm, HMCP=022/104 mmhg, SpO2=97 %, Resp=14 B/min, Pain=0, Nyasia=10, Guzman=2 A BALLOON, 3.0 X 15MM NC EUPHORA 15MM over a WIRE, BALANCE MIDDLEWEIGHT 190CM 190CM in the CIRC Mid 14:09:31 was inflated using a 30 EMETERIO INDEFLATOR at 16 emeterio for 12 sec. 14:10:12 Balloon Removed. 14:10:20 0.5 mg VERSED given in lab by Nimo Dennis RN in Left Hand via Peripheral IV. Ordered by Isauro Robertson A BALLOON, 3.25 X 8MM NC EUPHORA 8MM was inserted over WIRE, BALANCE MIDDLEWEIGHT 190CM 190CM v ia the 14:10:41 CIRC Mid. 14:11:29 25 mcg FENTANYL given in lab by Nimo Dennis RN in Left Hand via Peripheral IV. Ordered by Isauro Robertson A BALLOON, 3.25 X 8MM NC EUPHORA 8MM over a WIRE, BALANCE MIDDLEWEIGHT 190CM 190CM in the CIRC Mid 14:11:50 was inflated using a 30 EMETERIO INDEFLATOR at 12 emeterio for 10 sec. A BALLOON, 3.25 X 8MM NC EUPHORA 8MM over a WIRE, BALANCE MIDDLEWEIGHT 190CM 190CM in the CIRC Mid 14:12:52 was inflated using a 30 EMETERIO INDEFLATOR at 12 emeterio for 12 sec. A BALLOON, 3.25 X 8MM NC EUPHORA 8MM over a WIRE, BALANCE MIDDLEWEIGHT 190CM 190CM in the CIRC Mid 14:13:41 was inflated using a 30 EMETERIO INDEFLATOR at 14 emeterio for 14 sec. 14:13:58 Balloon Removed. 14:14:20 HR=81 bpm, XYYG=711/107 mmhg, SpO2=95.0 %, Resp=14 B/min, Pain=0, Nyasia=10, Guzman=2 14:16:52 Wire removed 14:18:32 A WIRE, EXCHANGE 260CM 3MMJ 260CM was inserted via Radial (right). 14:18:47 Catheter was removed 14:18:59 HR=88 bpm, HNSE=331/91 mmhg, SpO2=97 %, Resp=15 B/min, Pain=0, Nyasia=10, Guzman=2 14:20:40 Catheter(s) removed without difficulty Radial Compression Device Used. 15 mLs of air placed in BAND, RADIAL COMPRESSION TR LARGE 29 29 CM. Affected 14:20:42 hand 96 % O2 saturation. 14:23:05 600 mg PLAVIX given in lab by Nimo Dennis RN via Oral. Ordered by Isauro Robertson 14:23:52 81 mg ASPIRIN given in lab by Nimo Dennis RN via Subcutaneous. Ordered by Josef Robertson 14:23:54 HR=88 bpm, BFPU=467/99 mmhg, SpO2=92.0 %, Resp=15 B/min, Pain=0, Nyasia=10, Guzman=2 14:24:07 Case End (Physician broke scrub) 14:28:17 No case complications noted. 14:28:19 Cine recording checked. 14:28:36 Bedside Report will be given. 14:28:51 10 mg HYDRALAZINE given in lab by Nimo Dennis RN via Peripheral IV. Ordered by Isauro Robertson 14:28:59 HR=97 bpm, ZXLD=095/85 mmhg, SpO2=97 %, Resp=14 B/min, Pain=0, Nyasia=10, Guzman=2 14:29:16 Implantable Device card placed in patient's chart. 14:29:19 A Left Heart Cath was performed. 14:29:58 Vitals capture stopped. Assessment: Initial Case, HR=97 BPM, GYIQ=799/85 mmhg, Edema=None, Color=Normal, Skin = Warm, D ry Right Pulses: Mahendra Ped=2, Femoral=3, Radial=3 14:30:15 Left Pulses: Mahendra Ped=2, Femoral=3 Neurological: State=Alert, Ox3, JOYA Respiration: Resp=14 B/min, SpO2=97 % 14:31:20 Patient moved to stretcher End Study - Contrast Media Used In Study Contrast Total Opened (mL) Total Used (mL) Total Wasted (mL) Omnipaque 300 225 75 End Study - Maximum Contrast Load Max Contrast Load (mL) 1048.9 End Study - Radiation Exposure Fluoro Time (minutes) 19.5 End Study - Patient Disposition Complications Transferred To Interventional Outcome No Telemetry Bed successful
[2018-04-16] MEDS ORDERED: Iohexol 350 MG/ML 50 ML Vial (for Cath Lab) IVCONTRAST ONE (15:12)
[2018-04-16] MEDS ORDERED: Iohexol 350 MG/ML 100 ML Vial (for Cath Lab) IVCONTRAST ONE (15:12)
--- NOTE | 2018-04-16 15:47 | P.PNIM ---
Subjective Interval history: Patient reports the chest pain has resolved. Denies any shortness of breath. Denies any nausea or vomiting. Physical Exam Vital signs: Vital Signs 04/15/18 18:55 04/15/18 20:01 04/15/18 20:06 Temperature 98.5 F Pulse Rate 91 H 82 77 Respiratory Rate 20 18 Blood Pressure 206/124 H 201/114 H Pulse Oximetry 97 98 04/15/18 20:20 04/15/18 20:30 04/15/18 20:44 Temperature Pulse Rate 82 75 Respiratory Rate 20 Blood Pressure 200/103 H Pulse Oximetry 98 98 98 04/15/18 23:12 04/16/18 00:00 04/16/18 01:00 Temperature Pulse Rate 88 88 80 Respiratory Rate 20 16 Blood Pressure 147/92 H 161/91 H Pulse Oximetry 97 98 04/16/18 01:07 04/16/18 02:00 04/16/18 05:00 Temperature Pulse Rate 82 84 75 Respiratory Rate 20 18 16 Blood Pressure 155/93 H 137/74 157/88 H Pulse Oximetry 99 99 100 04/16/18 06:08 04/16/18 08:08 Temperature Pulse Rate 77 94 H Respiratory Rate 18 17 Blood Pressure 151/81 H 164/96 H Pulse Oximetry 99 97 Intake & Output 04/15/18 04/16/18 04/16/18 18:59 06:59 18:59 Weight 167.829 kg Narrative: GENERAL: Patient lying in bed. Appears comfortable. Alert and oriented 3. SKIN: Warm and dry. HEAD: Normocephalic. EYES: No scleral icterus. No injection or drainage. NECK: Supple, trachea midline. No JVD. CARDIOVASCULAR: Regular rate and rhythm without murmurs, gallops, or rubs. RESPIRATORY: Breath sounds equal bilaterally. No accessory muscle use. GASTROINTESTINAL: Abdomen soft, non-tender, nondistended. MUSCULOSKELETAL: No cyanosis, or edema. BACK: Nontender without obvious deformity. No CVA tenderness. Results - Labs CBC & Chem 7: 04/16/18 04:40 04/16/18 02:35 Laboratory Results - last 24 hr 04/15/18 04/15/18 04/15/18 20:35 20:35 20:35 WBC 11.8 H RBC 5.83 Hgb 16.2 Hct 47.3 MCV 81.1 MCH 27.7 MCHC 34.2 RDW 15.1 Plt Count 296 MPV 9.1 Neut % (Auto) 68.6 Lymph % (Auto) 22.5 Chaves % (Auto) 7.4 Eos % (Auto) 1.3 Baso % (Auto) 0.2 Neut # (Auto) 8.1 H Lymph # (Auto) 2.7 Chaves # (Auto) 0.9 Eos # (Auto) 0.2 Baso # (Auto) 0.0 WBC Differential . Differential Comment Auto diff final PT 10.0 INR 1.0 APTT 21.8 L Sodium Potassium Chloride Carbon Dioxide Anion Gap BUN Creatinine Estimated GFR Random Glucose Calcium Total Bilirubin AST ALT Alkaline Phosphatase Total Creatine Kinase CK-MB (CK-2) CK-MB (CK-2) % Troponin I 3.94 H* Total Protein Albumin Urine Opiates Screen Ur Barbiturates Screen Ur Amphetamines Screen U Benzodiazepines Scrn Urine Cocaine Screen U Cannabinoids Screen 04/15/18 04/16/18 04/16/18 20:35 02:35 04:40 WBC RBC Hgb Hct MCV MCH MCHC RDW Plt Count MPV Neut % (Auto) Lymph % (Auto) Chaves % (Auto) Eos % (Auto) Baso % (Auto) Neut # (Auto) Lymph # (Auto) Chaves # (Auto) Eos # (Auto) Baso # (Auto) WBC Differential Differential Comment PT INR APTT 27.5 D Sodium 136 140 Potassium 4.8 3.9 D Chloride 105 106 Carbon Dioxide 25.0 27.7 Anion Gap 6 6 BUN 11 11 Creatinine 0.84 0.89 Estimated GFR Greater than 89 Greater than 89 Random Glucose 95 110 H Calcium 8.7 8.4 L Total Bilirubin 0.3 0.3 AST 93 H 62 H ALT 49 41 Alkaline Phosphatase 74 62 Total Creatine Kinase 551 H CK-MB (CK-2) 43.3 H CK-MB (CK-2) % 7.9 H* Troponin I 6.79 H* Total Protein 7.9 6.9 D Albumin 3.3 L 3.2 L Urine Opiates Screen Ur Barbiturates Screen Ur Amphetamines Screen U Benzodiazepines Scrn Urine Cocaine Screen U Cannabinoids Screen 04/16/18 04/16/18 04/16/18 04:40 08:05 08:27 WBC 10.3 RBC 5.56 Hgb 15.1 Hct 46.1 MCV 82.9 MCH 27.2 MCHC 32.8 RDW 15.1 Plt Count 295 MPV 8.4 Neut % (Auto) 65.4 Lymph % (Auto) 24.5 Chaves % (Auto) 7.7 Eos % (Auto) 1.7 Baso % (Auto) 0.7 Neut # (Auto) 6.8 Lymph # (Auto) 2.5 Chaves # (Auto) 0.8 Eos # (Auto) 0.2 Baso # (Auto) 0.1 WBC Differential . Differential Comment Auto diff final PT INR APTT Sodium Potassium Chloride Carbon Dioxide Anion Gap BUN Creatinine Estimated GFR Random Glucose Calcium Total Bilirubin AST ALT Alkaline Phosphatase Total Creatine Kinase 515 H CK-MB (CK-2) 37.6 H CK-MB (CK-2) % 7.3 H* Troponin I 7.19 H* Total Protein Albumin Urine Opiates Screen Pos H Ur Barbiturates Screen Neg Ur Amphetamines Screen Pos H U Benzodiazepines Scrn Pos H Urine Cocaine Screen Neg U Cannabinoids Screen Neg Assessment and Plan - Assessment (1) Angina at rest Code(s): I20.8 - Other forms of angina pectoris Status: Acute (2) NSTEMI (non-ST elevated myocardial infarction) Code(s): I21.4 - Non-ST elevation (NSTEMI) myocardial infarction Status: Acute (3) Hypertension Code(s): I10 - Essential (primary) hypertension Status: Acute - Plan 37-year-old male admitted secondary to angina with NSTEMI. Angina NSTEMI Follow cardiac enzymes Aspirin daily When necessary oxygen When necessary morphine for pain. When necessary nitroglycerin Follow on telemetry Cardiology consulted Heparin IV drip = Status post catheterization with stenting. Continue aspirin, Plavix, beta- robinson. Echo pending. Pending cardiology clearance for discharge //Amphetamine use. Patient counseled against this. Hypertensive urgency Hypertension Continue baseline treatment Follow blood pressures Adjust treatments as needed As needed clonidine = Blood pressure continues elevated. As needed meds ordered. Will add hydralazine. Nicotine dependence Patient counseled to quit Intermittent alcohol abuse Monitor for any evidence of withdrawal DVT prophylaxis Patient is on a heparin drip Discharge Planning: Pending cardiology clearance.
[2018-04-16] MEDS: hydrALAZINE 50 MG Tablet PO SCH ×2 (17:18)
[2018-04-16] MEDS: Metoprolol Tartrate 25 MG Tablet PO SCH (21:31)
--- NOTE | 2018-04-17 00:51 | MB ---
cc: Isauro Robertson DO DATE: 04/16/2018 REASON FOR CONSULTATION: NSTEMI. HISTORY OF PRESENT ILLNESS: Kanu Jacobs is a pleasant 37-year-old male who presented to [facility] Emergency Room due to chest pain. He and a mtat were driving a car down from [place] and stopped multiple times along the way. Upon arriving in [facility], he started noticing chest pain. Pain was throughout his chest and into his shoulders and into his arms. Because of this, he was evaluated in the emergency room of an elevated troponin. I was asked to see him due to the elevated troponin. In seeing him, he is still having episodes of chest pain, but mostly pain throughout his arms, which was previously associated with his chest pain. PAST MEDICAL HISTORY: 1. Hypertension. 2. Morbid obesity with a BMI of 46.2. PAST SURGICAL HISTORY: Denies. ALLERGIES: BEE STING. MEDICATIONS: Lisinopril 20 mg daily. FAMILY HISTORY: Denies sudden cardiac within the family. SOCIAL HISTORY: He does smoke a pack of cigarettes every day. He drinks 2-3 times per week. He used marijuana for the first time this past week. REVIEW OF SYSTEMS: Fourteen systems were reviewed including osteopathic. Pertinent positives and negatives above, otherwise negative. PHYSICAL EXAMINATION: VITAL SIGNS: Temperature 98.5, heart rate 94, blood pressure 164/96, respirations 17, pulse oximetry 97% on room air. GENERAL: The patient appears mildly in distress, but alert, awake, and oriented x3. HEENT: Extraocular muscles intact. Mucous membranes moist. NECK: Supple. No JVD at 45 degrees. No carotid bruits heard bilaterally. Carotid upstroke is brisk in nature. HEART: Regular rate and rhythm. Positive first and second heart sounds with no noted murmurs, gallops, or rubs. LUNGS: Clear to auscultation bilaterally. No wheezes, rales, or rhonchi. ABDOMEN: Soft, nontender, nondistended. No organomegaly noted. EXTREMITIES: Show no clubbing, cyanosis, or edema. Femoral and distal pulses are intact bilaterally. NEUROLOGIC: No focal deficits. SKIN: Warm, dry, and intact. OSTEOPATHIC: No kyphoscoliosis, lordosis or paraspinal tender points. LABORATORY DATA: Hemoglobin 15.1, hematocrit 46.1, platelets 295. Potassium 3.9, BUN 11, creatinine 0.89. Troponin 7.19. UDS positive for opiates, amphetamines, and benzodiazepine. The patient states that he took Adderall this week. Electrocardiogram (04/16/2018 at 07:53) normal sinus rhythm. No acute ST-T wave changes. IMPRESSION: 1. Non-ST elevation myocardial infarction. 2. Chest pain consistent with coronary insufficiency. 3. Hypertension with accelerated hypertension. 4. Tobacco abuse. RECOMMENDATIONS: 1. Mr. Jacobs presented with chest pain concerning for coronary insufficiency. 2. He had an elevated troponin and because of this he will be recommended cardiac catheterization. Risks, benefits and alternatives have been explained to him and he consented to such. 3. If no significant coronary artery disease is found, then we will recommend further workup for possible pulmonary embolus, although his symptoms correlate more with coronary artery disease. 4. We will check a 2-D echo to look at his overall left ventricular function. 5. He will be continued on lisinopril for his hypertension. 6. I spoke to him for greater than 3 minutes about tobacco cessation. 7. Further recommendations will be made after coronary visualization. Thank you for allowing me to see Kanu Jacobs. If there are any questions, please do not hesitate to call. Isauro Robertson, DO VELAZCO/jaycee/luke , 10:32 PM , 10:42 PM
--- NOTE | 2018-04-17 02:35 | MA ---
cc: Isauro Robertson DO DATE: 04/16/2018 PROCEDURE: Left heart catheterization, coronary angiogram, moderate sedation 90 minutes, bare metal stent (2.5 x 26) to left circumflex. PREOPERATIVE DIAGNOSIS: [id number] myocardial infarction with continued chest pain, concerning for coronary insufficiency. POSTOPERATIVE DIAGNOSIS: Iqg-CI-hxhnsbtth myocardial infarction, status post bare-metal stent (2.5 x 26) to the left circumflex. MEDICATIONS: 1. Versed 1.5 mg. 2. Fentanyl 75 mcg. 3. Heparin 18,000 units. 4. Verapamil 2.5 mg. 5. Nitroglycerin 600 mcg. 6. Plavix 600 mg. 7. Aspirin 81 mg. 8. Hydralazine 10 mg. CONTRAST USED: 225 mL FLUOROSCOPY TIME: 19.5 minutes. MODERATE SEDATION: 90 minutes. FRAILTY SCORE: 2. ESTIMATED BLOOD LOSS: 20 mL PROCEDURAL SUMMARY: Kanu Jacobs is a pleasant 37-year-old male who presented to [facility] Emergency Room due to chest pain. He was found to have an elevated troponin and because of this, he was recommended cardiac catheterization. Risks, benefits, and alternatives were explained to him and he consented as such. He was brought to the lab and prepped in the usual sterile fashion. The right radial artery was accessed using a modified Seldinger technique and placement of a 5/6 [place] slender sheath. This is easily aspirated and flushed. A JR4 was advanced over a J-wire to the ascending aorta and across the aortic valve for measurement of left ventricular pressure. This was pulled back across the aortic valve showing no significant gradient of the aortic stenosis. JR4 was used for selective angiography of the right coronary artery system. This is exchanged out for a JL3.5, which was used for selective angiography of the left coronary artery system. JL3.5 was removed over a J wire. Please see notes below for intervention. LEFT MAIN: Normal-sized vessel with adequate reflux. It bifurcates into an LAD and circumflex. LAD: Normal-sized vessel with mild luminal irregularities throughout the proximal portion. 30% lesion in the mid portion. It gives off 1 major diagonal, which has multiple luminal irregularities. LEFT CIRCUMFLEX: Moderate size vessel with 100% occlusion in the midportion. There are minor [id number] and rmcav-xj-mees collaterals filling to obtuse marginals. RCA large -sized vessel with mild luminal irregularity throughout the proximal and mid portion. Distal portion has 50% lesion. It gives off a posterior descending artery as well as 2 posterolateral branches. LVEDP 25. INTERVENTION: Because of the patient's positive troponin and continued chest pain, I felt that the lesion needed to be intervened on. An EBU 3.5 guide was engaged in the left main. Heparin was given as an anticoagulant. A BMW wire was advanced meticulously into the distal obtuse marginal. A compliant balloon (2 x 12) was employed multiple times over the lesion. This is exchanged out for a compliant balloon (2.5 x 20), which was inflated over the lesion. A bare metal stent (2.5 x 26) was then inflated over the lesion. A noncompliant balloon (2.75 x 15) was used to post-dilate the stent. I attempted to place a noncompliant balloon (3.25 x 8), but as it was being pushed through the proximal portion of the stent, guide position was lost as well as wire position. Guide was reengaged and the wire was meticulously placed through the stent down into the obtuse marginal. A noncompliant balloon (3 x 15) was used to post-dilate the mid and proximal portion as the vessel tapers extensively. A noncompliant balloon (3.25 x 8) was used on the proximal portion of the stent. Wire was removed and final angiogram shows a well-opposed stent with no perforations or dissections. The patient was given aspirin and Plavix medicines. A radial band was placed over the arteriotomy site for hemostasis. The patient left the laboratory coordinator cardiovascularly stable. INTERVENTIONAL DATA: Vessel mid left circumflex, lesion length 20, pre-JACOB 0, post-JACOB 3, post-stenosis 10%. IMPRESSION: 1. Non-ST elevation myocardial infarction. 2. Coronary artery disease. 3. Chest pain consistent with coronary insufficiency. 4. Hypertension. 5. Morbid obesity. RECOMMENDATIONS: 1. Mr. Jacobs underwent PCI as above and he will be recommended aspirin indefinitely and Plavix for at least 12 months. 2. We will check a 2-D echo to look at the overall left ventricular function, cardiac structure and possible valvulopathies. 3. He will be placed on beta robinson, statin, and PAULINE inhibitor therapy. 4. He will be watched overnight and if stable in the morning, discharged home. He is down visiting from [place] and we discussed waiting a few days before flying back, which he understands. 5. Upon arriving back to [place], he will find a pharmacy grad intern for followup and request records. Thank you for allowing me to see Kanu Jacobs. If there are any questions, please do not hesitate to call. Isauro Robertson DO VGP/sv , 11:42 PM , 11:55 PM
[2018-04-17] MEDS: hydrALAZINE 50 MG Tablet PO SCH ×2 (08:20→12:48)
[2018-04-17] MEDS: Metoprolol Tartrate 25 MG Tablet PO SCH (08:20)
[2018-04-17] MEDS: Lisinopril 20 MG Tablet PO SCH (08:22)
[2018-04-17 09:02] VITALS: RESP 20; O2SAT 96
--- NOTE | 2018-04-17 10:01 | P.PNIM ---
Subjective Interval history: Patient says he is feeling well. Like to go home. Denies any chest pain or shortness of breath. Denies nausea vomiting. Says he will will quit smoking. Physical Exam Vital signs: Vital Signs 04/16/18 14:45 04/16/18 15:00 04/16/18 16:00 Temperature Pulse Rate 95 H 96 H 112 H Respiratory Rate Blood Pressure Pulse Oximetry 04/16/18 17:00 04/16/18 18:00 04/16/18 20:00 Temperature 98.9 F Pulse Rate 88 102 H 86 Respiratory Rate 18 Blood Pressure 128/82 Pulse Oximetry 97 04/16/18 21:00 04/16/18 22:00 04/16/18 23:00 Temperature Pulse Rate 80 90 76 Respiratory Rate Blood Pressure Pulse Oximetry 04/17/18 00:00 04/17/18 01:00 04/17/18 02:00 Temperature 99.3 F Pulse Rate 100 H 82 74 Respiratory Rate 18 Blood Pressure 188/82 H Pulse Oximetry 97 04/17/18 03:00 04/17/18 04:00 04/17/18 05:00 Temperature 97.9 F Pulse Rate 74 82 70 Respiratory Rate 18 Blood Pressure 141/89 H Pulse Oximetry 95 04/17/18 06:00 04/17/18 07:00 04/17/18 08:00 Temperature 98.1 F Pulse Rate 74 66 72 Respiratory Rate 20 Blood Pressure 165/78 H Pulse Oximetry 96 04/17/18 09:00 Temperature Pulse Rate 80 Respiratory Rate Blood Pressure Pulse Oximetry Intake & Output 04/16/18 04/17/18 04/17/18 18:59 06:59 18:59 Intake Total 1240 / 1240 240 / 240 Output Total 200 / 200 Balance 1040 / 1040 240 / 240 Weight 169 kg Intake: IV 1000 / 1000 NS Inj 1,000 ML @ 84 mls/hr IV. 1000 / 1000 CONT .[id number] [facility] Rx#:[id number] Oral 240 / 240 240 / 240 Output: Urine 200 / 200 Other: # Voids 2 Date of Last Bowel Movement 04/15/18 Narrative: GENERAL: Patient sitting up in chair at bedside. Appears comfortable. Alert and oriented 3. SKIN: Warm and dry. HEAD: Normocephalic. EYES: No scleral icterus. No injection or drainage. NECK: Supple, trachea midline. No JVD. CARDIOVASCULAR: Regular rate and rhythm without murmurs, gallops, or rubs. RESPIRATORY: Breath sounds equal bilaterally. No accessory muscle use. GASTROINTESTINAL: Abdomen soft, non-tender, nondistended. MUSCULOSKELETAL: No cyanosis, or edema. BACK: Nontender without obvious deformity. No CVA tenderness. Results - Labs CBC & Chem 7: 04/16/18 04:40 04/16/18 02:35 Laboratory Results - last 24 hr 04/16/18 08:05 CK-MB (CK-2) % 7.3 H* Troponin I 7.19 H* Assessment and Plan - Assessment (1) Angina at rest Code(s): I20.8 - Other forms of angina pectoris Status: Acute (2) NSTEMI (non-ST elevated myocardial infarction) Code(s): I21.4 - Non-ST elevation (NSTEMI) myocardial infarction Status: Acute (3) Hypertension Code(s): I10 - Essential (primary) hypertension Status: Acute - Plan 37-year-old male admitted secondary to angina with NSTEMI. Angina NSTEMI Follow cardiac enzymes Aspirin daily When necessary oxygen When necessary morphine for pain. When necessary nitroglycerin Follow on telemetry Cardiology consulted Heparin IV drip = Status post catheterization with stenting. Continue aspirin, Plavix, beta- robinson. Echo pending. Pending cardiology clearance for discharge = Patient doing well. Follow-up echocardiogram. Discharge home when cleared by cardiology. //Amphetamine use. Patient counseled against this. Hypertensive urgency Hypertension Continue baseline treatment Follow blood pressures Adjust treatments as needed As needed clonidine = Blood pressure continues elevated. As needed meds ordered. Will add hydralazine. = Blood pressure elevated. Will adjust medications. Nicotine dependence Patient counseled to quit Intermittent alcohol abuse Monitor for any evidence of withdrawal DVT prophylaxis Patient is on a heparin drip Discharge Planning: Pending cardiology clearance.
--- NOTE | 2018-04-17 10:07 | P.DS ---
Date of admission: 04/15/18 22:55 Primary care physician: UNKNOWN Brief History from admission: Mr. Jacobs is a 37-year-old male. He has a past history of hypertension. He came into the hospital with chest pressure. This is been occurring on and off for the past 2 days it became more significant today. Other symptoms included bilateral arm cramping. He says similar symptoms previously happened approximately 2 years ago. He visited hospital for those symptoms but that workup was negative at that time. Workup tonight showing a high troponin level at 3.94. Patient continues to have chest pressure on and off. Risk factors for coronary artery disease or smoking, alcohol abuse, obesity, and a sedentary lifestyle. He says he has used cocaine in the past but denies any recent cocaine use. He did recently use Adderall. Hypertension is present at baseline and he takes lisinopril 20 mg daily for this. No other complaints. DS: Diagnosis - Discharge Diagnosis (1) Angina at rest Status: Acute (2) NSTEMI (non-ST elevated myocardial infarction) Status: Acute (3) Hypertension Status: Acute DS: Medications - Discharge Medications Prescriptions: amlodipine [Norvasc] 5 mg PO DAILY 30 Days #30 tab aspirin 81 mg PO DAILY #30 tab atorvastatin [Lipitor] 80 mg PO HS 30 Days #240 tab clopidogrel [Plavix] 75 mg PO DAILY 30 Days #30 tab hydralazine 50 mg PO TID 30 Days #90 tab hydrochlorothiazide 12.5 mg PO DAILY 30 Days #30 cap lisinopril 20 mg PO DAILY 30 Days #30 tab metoprolol tartrate 25 mg PO BID 30 Days #60 tab DS: Summary Hospital Course: Patient presented with chest pain, troponin elevation, positive amphetamines in urine. It underwent cardiac catheterization with stenting. Patient's blood pressure found to be markedly elevated this improved with treatment. EF 5560 percent on echocardiogram. Patient will be started on antiplatelets, blood pressure medications. He is to follow with cardiology as outpatient. Smoking cessation, amphetamine cessation counseling provided For problem-based summary from most recent progress note, please see below. 37-year-old male admitted secondary to angina with NSTEMI. Angina NSTEMI Follow cardiac enzymes Aspirin daily When necessary oxygen When necessary morphine for pain. When necessary nitroglycerin Follow on telemetry Cardiology consulted Heparin IV drip = Status post catheterization with stenting. Continue aspirin, Plavix, beta- robinson. Echo pending. Pending cardiology clearance for discharge = Patient doing well. Follow-up echocardiogram. Discharge home when cleared by cardiology. //Amphetamine use. Patient counseled against this. Hypertensive urgency Hypertension Continue baseline treatment Follow blood pressures Adjust treatments as needed As needed clonidine = Blood pressure continues elevated. As needed meds ordered. Will add hydralazine. = Blood pressure elevated. Will adjust medications. Nicotine dependence Patient counseled to quit Intermittent alcohol abuse Monitor for any evidence of withdrawal DVT prophylaxis Patient is on a heparin drip Discharge Planning: Pending cardiology clearance. - Time Spent with Patient Total time spent providing and/or coordinating discharge services: Greater than 30 minutes - Quality: VTE Deep Vein Thrombosis/Pulmonary Embolism Present on Admission: No Exam Vital signs: Vital Signs 04/16/18 14:45 04/16/18 15:00 04/16/18 16:00 Temperature Pulse Rate 95 H 96 H 112 H Respiratory Rate Blood Pressure Pulse Oximetry 04/16/18 17:00 04/16/18 18:00 04/16/18 20:00 Temperature 98.9 F Pulse Rate 88 102 H 86 Respiratory Rate 18 Blood Pressure 128/82 Pulse Oximetry 97 04/16/18 21:00 04/16/18 22:00 04/16/18 23:00 Temperature Pulse Rate 80 90 76 Respiratory Rate Blood Pressure Pulse Oximetry 04/17/18 00:00 04/17/18 01:00 04/17/18 02:00 Temperature 99.3 F Pulse Rate 100 H 82 74 Respiratory Rate 18 Blood Pressure 188/82 H Pulse Oximetry 97 04/17/18 03:00 04/17/18 04:00 04/17/18 05:00 Temperature 97.9 F Pulse Rate 74 82 70 Respiratory Rate 18 Blood Pressure 141/89 H Pulse Oximetry 95 04/17/18 06:00 04/17/18 07:00 04/17/18 08:00 Temperature 98.1 F Pulse Rate 74 66 72 Respiratory Rate 20 Blood Pressure 165/78 H Pulse Oximetry 96 04/17/18 09:00 Temperature Pulse Rate 80 Respiratory Rate Blood Pressure Pulse Oximetry Intake & Output 04/16/18 04/17/18 04/17/18 18:59 06:59 18:59 Intake Total 1240 / 1240 240 / 240 Output Total 200 / 200 Balance 1040 / 1040 240 / 240 Weight 169 kg Intake: IV 1000 / 1000 NS Inj 1,000 ML @ 84 mls/hr IV. 1000 / 1000 CONT .[id number] [facility] Rx#:[id number] Oral 240 / 240 240 / 240 Output: Urine 200 / 200 Other: # Voids 2 Date of Last Bowel Movement 04/15/18 Results Procedures completed during hospitalization: Cardiac catheterization. Please see report. Labs on day of discharge: Labs from last 24 hours 04/16/18 08:05 CK-MB (CK-2) % 7.3 H* Troponin I 7.19 H* Discharge Plan - Discharge Disposition Patient Disposition: 01 Discharge Home - Discharge Condition Condition: Good - Discharge Order Discharge Orders: Discharge Order (Routine); Ordered 04/17/18 Ordered By: Presley Connor - Discharge Details Anticipated Discharge Date: 04/17/18 Discharge Comment: Discharge when cleared by cardiology. - Physicians Team Primary Care Provider: UNKNOWN, Attending Provider: Presley Connor Other Providers: Rupesh Aldrich MD ; Isauro Robertson DO
[2018-04-17] MEDS ORDERED: amLODIPine 5 MG Tablet PO SCH (10:15)
[2018-04-17 10:52] LABS: Baso # (Auto) 0.1 th/mm3 (0.0-0.2); Baso % (Auto) 0.7 % (0.0-2.0); Eos # (Auto) 0.1 th/mm3 (0.0-0.4); Eos % (Auto) 1.1 % (0.0-4.0); Hematocrit 44.4 % (39.0-51.0); Hemoglobin 14.6 gm/dL (13.0-17.0); Lymph # (Auto) 1.9 th/mm3 (1.0-4.8); Lymph % (Auto) 20.6 % (9.0-44.0); Mean Corpuscular HGB Conc 32.9 % (32.0-36.0); Mean Corpuscular Hemoglobin 27.1 pg (27.0-34.0); Mean Corpuscular Volume 82.5 fL (80.0-100.0); Mean Platelet Volume 8.1 fL (7.0-11.0); Mono # (Auto) 0.9 th/mm3 (0.0-0.9); Mono % (Auto) 9.4 % (0.0-8.0); Neut # (Auto) 6.4 th/mm3 (1.8-7.7); Neut % (Auto) 68.2 % (16.0-70.0); Platelet Count 277 th/mm3 (150-450); Red Blood Count 5.39 mil/mm3 (4.50-5.90); White Blood Count 9.4 th/mm3 (4.0-11.0)
[2018-04-17 11:15] LABS: Anion Gap 7 meq/L (5-15); Blood Urea Nitrogen 11 mg/dL (7-18); Calcium 8.6 mg/dL (8.5-10.1); Carbon Dioxide 27.2 meq/L (21.0-32.0); Chloride 105 meq/L (98-107); Glomerular Filtration Rate Greater Than 89 mL/min (>89); Glucose,Random 106 mg/dL (74-106); Potassium 4.1 meq/L (3.5-5.1); Sodium 139 meq/L (136-145)
[2018-04-17 11:25] VITALS: BP 146/83; PULSE 71; TEMP 97.9
--- NOTE | 2018-04-17 13:06 | P.PNCA ---
Subjective Interval history: No events overnight No complaints Physical Exam Vital signs: Vital Signs 04/16/18 14:45 04/16/18 15:00 04/16/18 16:00 Temperature Pulse Rate 95 H 96 H 112 H Respiratory Rate Blood Pressure Pulse Oximetry 04/16/18 17:00 04/16/18 18:00 04/16/18 20:00 Temperature 98.9 F Pulse Rate 88 102 H 86 Respiratory Rate 18 Blood Pressure 128/82 Pulse Oximetry 97 04/16/18 21:00 04/16/18 22:00 04/16/18 23:00 Temperature Pulse Rate 80 90 76 Respiratory Rate Blood Pressure Pulse Oximetry 04/17/18 00:00 04/17/18 01:00 04/17/18 02:00 Temperature 99.3 F Pulse Rate 100 H 82 74 Respiratory Rate 18 Blood Pressure 188/82 H Pulse Oximetry 97 04/17/18 03:00 04/17/18 04:00 04/17/18 05:00 Temperature 97.9 F Pulse Rate 74 82 70 Respiratory Rate 18 Blood Pressure 141/89 H Pulse Oximetry 95 04/17/18 06:00 04/17/18 07:00 04/17/18 08:00 Temperature 98.1 F Pulse Rate 74 66 72 Respiratory Rate 20 Blood Pressure 165/78 H Pulse Oximetry 96 04/17/18 09:00 04/17/18 10:00 04/17/18 11:00 Temperature 97.9 F Pulse Rate 80 62 71 Respiratory Rate 20 Blood Pressure 146/83 H Pulse Oximetry 96 Intake & Output 04/16/18 04/17/18 04/17/18 18:59 06:59 18:59 Intake Total 1240 / 1240 240 / 240 Output Total 200 / 200 Balance 1040 / 1040 240 / 240 Weight 169 kg Intake: IV 1000 / 1000 NS Inj 1,000 ML @ 84 mls/hr IV. 1000 / 1000 CONT .[id number] [facility] Rx#:[id number] Oral 240 / 240 240 / 240 Output: Urine 200 / 200 Other: # Voids 2 Date of Last Bowel Movement 04/15/18 Narrative: GENERAL: Patient sitting up in chair at bedside. Appears comfortable. Alert and oriented 3. SKIN: Warm and dry. HEAD: Normocephalic. EYES: No scleral icterus. No injection or drainage. NECK: Supple, trachea midline. No JVD. CARDIOVASCULAR: Regular rate and rhythm without murmurs, gallops, or rubs. RESPIRATORY: Breath sounds equal bilaterally. No accessory muscle use. GASTROINTESTINAL: Abdomen soft, non-tender, nondistended. MUSCULOSKELETAL: No cyanosis, or edema. BACK: Nontender without obvious deformity. No CVA tenderness. Assessment and Plan - Assessment (1) Morbidly obese Code(s): E66.01 - Morbid (severe) obesity due to excess calories Status: Acute (2) Angina at rest Code(s): I20.8 - Other forms of angina pectoris Status: Acute (3) NSTEMI (non-ST elevated myocardial infarction) Code(s): I21.4 - Non-ST elevation (NSTEMI) myocardial infarction Status: Acute (4) Hypertension Code(s): I10 - Essential (primary) hypertension Status: Acute - Plan 1) NSTEMI/CAD s/p BMS to LCx ASA/Plavix/BB/Statin/PAULINE-I 2) 2D echo pending 3) After echo read, cardiovascularly stable for discharge 4) Discussed taking a day or two before heading back home on [facility] 5) Will follow up with Cardiology back [facility]
--- NOTE | 2018-04-17 17:13 | ECHRPT ---
Indication: CORONARY ATHEROSCLEROSIS CONCLUSIONS Normal left ventricular size. Mild concentric left ventricular hypertrophy. The left ventricular systolic function is normal with an estimated ejection fraction in the range of 55-60%. Trace mitral valve regurgitation. There is trace tricuspid valve regurgitation. BP: / HR: Rhythm: Sinus MEASUREMENTS (Male / Female) Normal Values Technical Quality:Technically difficult study 2D ECHO LVOT Diameter 2.1 cm Aortic Root Diameter 2.8 cm M-MODE AV Cusp Separation MM 2.5 cm DOPPLER AV Peak Velocity 141.0 cm/s AV Peak Gradient 8.0 mmHg AV Mean Gradient 4.0 mmHg AV Velocity Time Integral 24.6 cm LVOT Peak Velocity 108.0 cm/s LVOT Peak Gradient 4.7 mmHg LVOT Velocity Time Integral 18.6 cm AV Area Cont Eq vti 2.6 cm AV Area Cont Eq pk 2.7 cm Mitral E Point Velocity 64.7 cm/s Mitral A Point Velocity 65.2 cm/s Mitral E to A Ratio 1.0 LV E' Lateral Velocity 4.8 cm/s Mitral E to LV E' Lateral Ratio 13.5 LV E' Septal Velocity 11.1 cm/s Mitral E to LV E' Septal Ratio 5.8 PV Peak Velocity 100.0 cm/s PV Peak Gradient 4.0 mmHg FINDINGS LEFT VENTRICLE Normal left ventricular size. Mild concentric left ventricular hypertrophy. The left ventricular systolic function is normal with an estimated ejection fraction in the range of 55-60%. RIGHT VENTRICLE Normal right ventricular size and systolic function. LEFT ATRIUM The left atrial size is normal. RIGHT ATRIUM The right atrial size is normal. ATRIAL SEPTUM No atrial level shunt is demonstrated by color flow Doppler interrogation. AORTA The aortic root and proximal ascending aorta are normal in size on limited imaging. MITRAL VALVE Trace mitral valve regurgitation. AORTIC VALVE Trileaflet aortic valve. No aortic valve stenosis or regurgitation. TRICUSPID VALVE There is trace tricuspid valve regurgitation. PULMONARY VALVE The pulmonary valve is not well visualized. VESSELS The inferior vena cava is normal in size. PERICARDIUM No pericardial effusion. Marina Bansal MD, FACC (Electronically Signed) Final Date:17 April 2018 17:12
== END 2018-04-17 15:50 | disposition home or self-care (01) ==
LOC: NEPE 18:47 → NEDA 22:55 → NEDH 04-16 05:25 → HCIS 04-16 14:28
PROVIDERS: ADMIT Internal Medicine; ATTEND Internal Medicine